=== PATIENT | female | born 1975 | race Caucasian/White ===

== ENCOUNTER 2018-12-15 04:53 | Emergency (ER) | payer MEDICAID ==
[~2018-12-15] VITALS: Ht 165.1 cm; Wt 104.3 kg
[~2018-12-15 04:53] MED LIST: ALPRAZOLAM; AMBIEN 10 MG TA10 MG PO; AMOXICILLIN 50500 MG PO; BACTRIM DS TAB1 EACH PO; CIPRO500 MG PO; CLONAZEPAM 0.50.5 M1 PO; CLONAZEPAM PO; DELTASONE20 MG PO; DEPAKOTE500 MG; DOXYCYCLINE 10100 MG PO; EFFEXOR25 MG PO; FLEXERIL PO; FLONASE 0.05%50 MCG NS; LORTAB 5 MG/5001 TA1 PO; MEDROLDOSEPACK PO; METHADONE HCL 110 MG PO; METHADOSE10 MG/1 ML PO; MOBIC15 MG PO; NAPROXEN; NEURONTIN 300300 M1 PO; NORCO 5-325 TA1 EACH; NORCO 5-325 TA1 EACH PO; OXYCONTIN10 M1 PO; PAMELOR25 MG PO; PENICILLIN V P500 MG PO; PENICILLIN VK250 MG PO; PENICILLIN VK500 M1 PO; PEPCID40 MG PO; PERCOCET 5-3251 EACH PO; PERCOCET PO; PHENERGAN 25 MG25 MG PO; PHENERGAN50 MG RC; PREDNISONE 20 M20 M1 PO; ROBAXIN500 MG PO; TRAMADOL 50 MG50 MG PO; TYLENOL325 MG PO; VENTOLIN HFA INH8 GM IH; VICODIN 5-5001 EACH PO; VISTARIL50 MG PO; WELLBUTRIN XL300 M2 PO; WELLBUTRIN XL300 MG PO; ZOFRAN ODT4 MG PO
[2018-12-15 05:36] LABS: HEMATOCRIT 42.3 % (37.0-47.0); HEMOGLOBIN 14.2 gm/dL (12.0-15.0); MCH 29.8 pg (26.0-34.0); MCHC 33.6 g/dL (28.0-37.0); MCV 88.6 fL (80.0-100.0); MPV 7.9 fl. (7.2-11.1); NUCLEATED RBCS 0 /100WBC; PLATELET COUNT* 417 thou/uL (150-400); RBC 4.77 mil/uL (4.20-5.00); RDW-CV 14.2 % (10.5-14.5); WBC 14.2 thou/uL (4.0-11.0)
[2018-12-15 05:44] LABS: URINE BILIRUBIN 2+ (Negative); URINE BLOOD 2+ (Negative); URINE CLARITY CLEAR; URINE COLOR DARK YELLOW; URINE GLUCOSE-RANDOM NEGATIVE (Negative); URINE KETONES 3+ (Negative); URINE LEUKOCYTES-REFLEX NEGATIVE (Negative); URINE NITRITE-REFLEX NEGATIVE (Negative); URINE PROTEIN 3+ (Negative); URINE SPECIFIC GRAVITY >= 1.030 (1.005-1.030); URINE UROBILINOGEN 0.2 E.U./dl (0.2-1.0)
[2018-12-15 05:48] LABS: CALCIUM 9.9 mg/dL (8.5-10.1); CREATININE 1.2 mg/dL (0.6-1.3); POTASSIUM 3.6 mmol/L (3.5-5.1)
[2018-12-15 05:48] LABS: ICTOTEST (BILI CONFIRMATORY) Positive (Negative)
[2018-12-15 05:52] LABS: ALBUMIN 4.4 g/dL (3.4-5.0); TOTAL BILIRUBIN 0.5 mg/dL (<0.1-1.0); TOTAL PROTEIN 8.6 g/dL (6.4-8.2)
[2018-12-15 05:52] LABS: AMP/METHAMP Negative (Negative); BARBITURATES Negative (Negative); BENZODIAZEPINES Negative (Negative); COCAINE Negative (Negative); METHADONE Negative (Negative); OPIATES POSITIVE (Negative); PCP Negative (Negative); THC POSITIVE (Negative)
[2018-12-15 06:07] LABS: BACTERIA-REFLEX 1-9 Few /HPF (None Seen); CASTS None Seen /LPF (None Seen); CRYSTALS None Seen /LPF (None Seen); MUCUS 4-6 Moderate strn/LPF (None Seen); SQUAMOUS 4-10 Moderate /LPF (0-3); URINE RBC 3-10 Few /HPF (0-2); URINE WBC-REFLEX 0-5 Rare /HPF (0-5)
[2018-12-15 06:32] LABS: ABSOLUTE LYMPHOCYTES 0.9 thou/uL (0.8-5.3); ABSOLUTE MONOCYTES 0.3 thou/uL (0.0-1.2); ABSOLUTE NEUTROPHILS 13.1 thou/uL (1.6-8.1); PLATELET ESTIMATE INCREASED
[2018-12-15] MEDS ORDERED: PROMS25 WY RECTAL (07:09)
[2018-12-15] MEDS ORDERED: PHENERGAN 25 MG25 M1 PO (07:09)
[2018-12-15 07:25] VITALS: BP 126/62
== END 2018-12-15 07:27 | disposition home or self-care (01) ==
LOC: M.ERS 04:53
PROVIDERS: Personal Emergency Response Attendant
DX: R11.2 Nausea with vomiting, unspecified (principal); R10.32 Left lower quadrant pain; F17.210 Nicotine dependence, cigarettes, uncomplicated; Z90.49 Acquired absence of other specified parts of digestive tract; Z98.51 Tubal ligation status; Z79.899 Other long term (current) drug therapy